=== PATIENT | male | born 1945 | race Caucasian/White ===

== ENCOUNTER 2018-10-22 17:14 | Inpatient (IN) ==
[2018-10-22] MEDS ORDERED: *HR* OxyCODONE Immed Rel 5 MG TABLET PO PRN (18:00)
[2018-10-22] MEDS ORDERED: Ondansetron ODT 4 MG TAB.RAPDIS SL PRN (18:02)
[2018-10-22] MEDS ORDERED: Acetaminophen 325 MG TABLET PO PRN (18:02)
[2018-10-22] MEDS: Aspirin Enteric Coated 325 MG Tablet PO SCH (20:40)
[2018-10-22] MEDS: Sennosides/Docusate Sodium TABLET PO SCH (20:41)
[2018-10-22] MEDS: Losartan/HCTZ 50-12.5 TABLET PO SCH (20:41)
[2018-10-22] MEDS: *HR* OxyCODONE Immed Rel 5 MG TABLET PO PRN (20:43)
[2018-10-22] MEDS ORDERED: Mag Hydrox/Al Hydrox/Simeth 30 ML UDC PO SCH (21:00)
[2018-10-23 05:42] LABS: Basophils % 0.2 %; Eosinophils # 0.1 K/mcL (0.0-0.6); Hematocrit 25.2 % (37.5-50.1); Hemoglobin 8.7 g/dL (12.9-16.9); Immature Granulocytes % 0.2 % (0-4); Lymphocytes # 1.3 K/mcL (0.6-4.6); Lymphocytes % 24.4 %; Mean Corpuscular HGB Conc 34.5 g/dL (31.6-35.5); Mean Corpuscular Hemoglobin 30.5 pg (28.0-33.3); Mean Corpuscular Volume 88.4 fL (83.0-100.0); Monocytes # 0.9 K/mcL (0.0-1.3); Monocytes % 16.7 %; Neutrophils # 3.1 K/mcL (1.6-8.9); Platelet Count 107 K/mcL (140-400); Red Blood Count 2.85 M/mcL (4.19-5.50); Red Cell Distribution Width 13.2 % (11.5-14.5); Segmented Neutrophils % 56.5 %
[2018-10-23] MEDS: Losartan/HCTZ 50-12.5 TABLET PO SCH ×2 (05:46→16:34)
[2018-10-23] MEDS: *HR* Enoxaparin 30 MG/0.3 ML SYRINGE SQ SCH ×2 (05:46→16:34)
[2018-10-23 05:47] LABS: INR 1.1; Prothrombin Time 12.5 Seconds (9.4-12.1)
[2018-10-23] MEDS: *HR* OxyCODONE Immed Rel 5 MG TABLET PO PRN ×2 (05:47→20:58)
[2018-10-23 05:49] LABS: Activated Partial Thrombo Time 31.3 Seconds (26.0-36.0)
[2018-10-23 05:58] LABS: BUN/Creatinine Ratio 27 (6-26); Blood Urea Nitrogen 27 mg/dL (8-23); Carbon Dioxide 29 mEq/L (23-29); Chloride 93 mEq/L (98-107); Glucose 123 mg/dL (70-105); Osmolality,Calculated 274 (280-300); Potassium 3.2 mEq/L (3.5-5.1); Sodium 129 mEq/L (136-145); eGFR For Non-African Americans > 60 (> 60)
[2018-10-23] MEDS: Sennosides/Docusate Sodium TABLET PO SCH ×2 (09:10→20:59)
[2018-10-23] MEDS: Aspirin Enteric Coated 325 MG Tablet PO SCH ×2 (09:10→20:59)
[2018-10-23] MEDS: Mag Hydrox/Al Hydrox/Simeth 30 ML UDC PO PRN (10:28)
--- NOTE | 2018-10-23 15:36 | Internal Med History&Physical ---
Date of Encounter: 10/23/18 Time of Encounter: 13:30 Assessment and Plan (1) Status post total knee replacement, left Current visit: Yes Status: Acute PT is deconditioned will need PT OT pain control (2) Chronic GERD Current visit: Yes Status: Acute pt has had acute on chronic gerd he was prescribed a PPI but has been afraid to take it Will change to Pepcid Denies melena or hematemesis (3) Poor appetite Current visit: Yes Status: Acute Patient has not been eating for 2 days he states he just does not feel hungry Denies abdominal pain or chest pain Says he has been mildly depressed since he lost the vision in his left eye 2 years ago after retinal detachment Denies suicidal ideation Will start low-dose 5 mg Lexapro and low-dose Remeron at at bedtime Internal Medicine - H&P: HPI Chief complaint: post left total knee replacement Admitted From: Intrahospital Transfer History of present illness: Mr. Mendez is a 73 year old male who recently had surgery for left total knee replacement He did well with the surgery but says he was constipated and not wanting to eat after the surgery has been feeling tired. He is deconditioned. He says usually he was active but 2 years ago he lost the vision in his left eye completely after retinal detachment. 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 Says because he likes to work on cars and motorcycles he has not been able to do things that he wants to do since he lost the vision in his eye. Discussed. He thinks this may also be affecting his appetite. Past Med Surg Social Fam HX - Past Medical History Medical history: GERD, hyperlipidemia, hypertension, RA Additional medical history: pt states he had brain scan after his eye surgery d/t complications and they seen an "old stroke" Psychiatric history: no psych history - Past Surgical History Surgical History: cataract Additional surgical history: hernia repair. left knee scope. right hip replacement - Social History Smoking Status: Never smoker Smokeless Tobacco Status: No Alcohol use: none Drug use: none Internal Medicine - H&P: Meds Losartan/Hydrochlorothiazide [Hyzaar 100-25 Tablet] 0.5 tab PO BID 07/15/17 [History] Simvastatin [Zocor] 20 mg PO HS 07/15/17 [History] Aspirin [Ecotrin] 325 mg PO BID 10/22/18 [History] Esomeprazole Magnesium [Nexium] 40 mg PO DAILY 10/22/18 [History] Losartan/HCTZ [Hyzaar 50-12.5 Tablet] 1 mg PO DAILY 10/22/18 [History] Oxycodone HCl [Roxybond] 5 mg PO Q4HR PRN 10/22/18 [History] Oxycodone HCl [Roxybond] 10 mg PO Q4H PRN 10/22/18 [History] Allergy/AdvReac Type Severity Reaction Status Date / Time No Known Allergies Allergy Verified 07/15/17 10:48 All Systems PM: A 10-system review of systems was performed and is negative for pertinent findings except as documented above in the HPI. - Constitutional Vitals: Temp Pulse Resp BP Pulse Ox 99.1 F 85 16 116/75 95 10/23/18 12:00 10/23/18 12:00 10/23/18 12:00 10/23/18 12:00 10/23/18 12:00 General appearance: Present: A&O X 0, cooperative, underweight Exam: General Thin WM fair eye contact skin no rash or lesion nails mildly dystrophic dressing intact heart regular no murmer lungs clear robert abd soft nt bs neck no mass no bruit Internal Med - H&P Results - Labs CBC & Chem 7: 10/23/18 05:15 10/23/18 05:15 Labs: Short CBC 10/23/18 Range/Units 05:15 WBC 5.5 (4.3-11.1) K/mcL Hgb 8.7 L (12.9-16.9) g/dL Hct 25.2 L (37.5-50.1) % Plt Count 107 L (140-400) K/mcL Neutrophils # 3.1 (1.6-8.9) K/mcL BMP 10/23/18 05:15 Sodium 129 L Potassium 3.2 L Chloride 93 L Carbon Dioxide 29 BUN 27 H Creatinine 1.01 Glucose 123 H Calcium 8.0 L
[2018-10-23] MEDS: Famotidine 20 MG TABLET PO SCH (16:34)
[2018-10-23] MEDS: Mirtazapine 15 MG TABLET PO SCH (20:58)
[2018-10-24 05:34] LABS: Hematocrit 24.6 % (37.5-50.1); Hemoglobin 8.4 g/dL (12.9-16.9); Mean Corpuscular HGB Conc 34.1 g/dL (31.6-35.5); Mean Corpuscular Volume 87.9 fL (83.0-100.0); Mean Platelet Volume 11.9 fL (9.4-12.4); Platelet Count 138 K/mcL (140-400); Red Cell Distribution Width 13.2 % (11.5-14.5)
[2018-10-24] MEDS: Losartan/HCTZ 50-12.5 TABLET PO SCH ×2 (05:42→17:40)
[2018-10-24] MEDS: Famotidine 20 MG TABLET PO SCH ×2 (05:46→17:39)
[2018-10-24] MEDS: *HR* Enoxaparin 30 MG/0.3 ML SYRINGE SQ SCH (05:47)
[2018-10-24 05:50] LABS: Alanine Aminotransferase 21 Units/L (7-52); Albumin/Globulin Ratio 1.2 (1.1-2.2); Alkaline Phosphatase 92 Units/L (34-104); Aspartate Amino Transferase 37 Units/L (13-39); BUN/Creatinine Ratio 28 (6-26); Bilirubin,Total 1.2 mg/dL (0.3-1.0); Blood Urea Nitrogen 31 mg/dL (8-23); Calcium 8.1 mg/dL (8.6-10.3); Carbon Dioxide 29 mEq/L (23-29); Chloride 93 mEq/L (98-107); Globulin 2.5 g/dL (2.4-3.5); Glucose 134 mg/dL (70-105); Osmolality,Calculated 279 (280-300); Potassium 3.1 mEq/L (3.5-5.1); Sodium 130 mEq/L (136-145); Total Protein 5.5 g/dL (6.4-8.9); eGFR For Non-African Americans > 60 (> 60)
[2018-10-24] MEDS: Sennosides/Docusate Sodium TABLET PO SCH ×2 (08:06→19:46)
[2018-10-24] MEDS: Aspirin Enteric Coated 325 MG Tablet PO SCH ×2 (08:12→19:46)
--- NOTE | 2018-10-24 13:37 | Internal Med Progress Note ---
Date of Encounter: 10/24/18 Time of Encounter: 14:50 - Assessment and plan (1) Status post total knee replacement, left Current Visit: Yes Status: Acute (2) Chronic GERD Current Visit: Yes Status: Acute (3) Poor appetite Current Visit: Yes Status: Acute - Subjective Interval history: Assessment and Plan (1) Status post total knee replacement, left Current visit: Yes Status: Acute PT is deconditioned will need PT OT pain control (2) Chronic GERD Current visit: Yes Status: Acute pt has had acute on chronic gerd he was prescribed a PPI but has been afraid to take it Will change to Pepcid Denies melena or hematemesis (3) Poor appetite Current visit: Yes Status: Acute Patient has not been eating several days he states he just does not feel hungry and is nauseated a lot. did vomit today he also vomited after surgery he says Denies abdominal pain or chest pain Says he has been mildly depressed since he lost the vision in his left eye 2 years ago after retinal detachment Denies suicidal ideation Will start low-dose 5 mg Lexapro and low-dose Remeron at at bedtime (4) hypokalemia K has been low but is lower today will give oral K and start LR IV (5) Anemia Pt has been anemic not acute Hb still over 8 but drifting down a bit will check iron and b12 will stop lovenox and continue with [po ASA bid INTERVAL HX s/p post left total knee replacement Admitted From: Intrahospital Transfer for rehab Mr. Mendez is a 73 year old male who recently had surgery for left total knee replacement He did well with the surgery but says he was constipated and not wanting to eat after the surgery has been feeling tired. He is now having loose stools He is deconditioned. He reports he has some ongoing more chronic nausea but did vomit earlier today he is not eating much he has had low potassium and low hb in past and now again no active bleeding no melana noted He says usually he was active but 2 years ago he lost the vision in his left eye completely after retinal detachment. 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 Says because he likes to work on cars and motorcycles he has not been able to do things that he wants to do since he lost the vision in his eye. - EXAMl General appearance: Present: A&O X 0, cooperative, underweight slight anxiety Thin WM fair eye contact nauseated skin no rash or lesion dressing intact heart regular no murmer lungs clear robert abd soft nt bs neck no mass no bruit - Constitutional Vitals: Temp Pulse Resp BP Pulse Ox 98.3 F 79 12 100/62 90 10/24/18 05:41 10/24/18 05:41 10/24/18 05:41 10/24/18 05:41 10/24/18 05:41 General appearance: Present: A&O X 0, cooperative, underweight Internal Medicine: Result - Labs CBC & Chem 7: 10/24/18 05:25 10/24/18 05:25 Labs: Short CBC 10/24/18 Range/Units 05:25 WBC 5.2 (4.3-11.1) K/mcL Hgb 8.4 L (12.9-16.9) g/dL Hct 24.6 L (37.5-50.1) % Plt Count 138 L (140-400) K/mcL BMP 10/24/18 05:25 Sodium 130 L Potassium 3.1 L Chloride 93 L Carbon Dioxide 29 BUN 31 H Creatinine 1.11 Glucose 134 H Calcium 8.1 L Liver Function 10/24/18 Range/Units 05:25 Total Bilirubin 1.2 H (0.3-1.0) mg/dL AST 37 (13-39) Units/L ALT 21 (7-52) Units/L Alkaline Phosphatase 92 (34-104) Units/L Albumin 3.0 L (3.5-5.7) g/dL - ABG Interpretation ABG results: PT/INR, D-dimer PT 12.5 Seconds (9.4-12.1) H 10/23/18 05:15 Consult Discharge Plan - Plan Referrals: Adonis Moreno DO [Primary Care Provider] -
[2018-10-24] MEDS: Ringers Solution, Lactated 1,000 ML IVC SCH ×2 (15:17→22:20)
[2018-10-24] MEDS: Mirtazapine 15 MG TABLET PO SCH (19:46)
[2018-10-24] MEDS: Mag Hydrox/Al Hydrox/Simeth 30 ML UDC PO PRN (20:30)
[2018-10-25] MEDS: Losartan/HCTZ 50-12.5 TABLET PO SCH ×2 (04:42→18:16)
[2018-10-25] MEDS: Famotidine 20 MG TABLET PO SCH ×2 (04:54→18:22)
[2018-10-25] MEDS: *HR* OxyCODONE Immed Rel 5 MG TABLET PO PRN (04:54)
[2018-10-25] MEDS: Ringers Solution, Lactated 1,000 ML IVC SCH (04:54)
[2018-10-25 05:45] LABS: Basophils % 0.4 %; Eosinophils # 0.2 K/mcL (0.0-0.6); Hematocrit 24.8 % (37.5-50.1); Hemoglobin 8.5 g/dL (12.9-16.9); Immature Granulocytes % 0.2 % (0-4); Lymphocytes # 1.3 K/mcL (0.6-4.6); Mean Corpuscular HGB Conc 34.3 g/dL (31.6-35.5); Mean Corpuscular Hemoglobin 30.5 pg (28.0-33.3); Mean Corpuscular Volume 88.9 fL (83.0-100.0); Monocytes # 0.7 K/mcL (0.0-1.3); Monocytes % 14.3 %; Neutrophils # 2.9 K/mcL (1.6-8.9); Platelet Count 166 K/mcL (140-400); Red Blood Count 2.79 M/mcL (4.19-5.50); Red Cell Distribution Width 13.2 % (11.5-14.5); Segmented Neutrophils % 57.1 %
[2018-10-25 06:00] LABS: BUN/Creatinine Ratio 21 (6-26); Blood Urea Nitrogen 19 mg/dL (8-23); Carbon Dioxide 30 mEq/L (23-29); Chloride 97 mEq/L (98-107); Glucose 156 mg/dL (70-105); Osmolality,Calculated 281 (280-300); Potassium 3.2 mEq/L (3.5-5.1); Sodium 133 mEq/L (136-145); eGFR For Non-African Americans > 60 (> 60)
[2018-10-25] MEDS: Aspirin Enteric Coated 325 MG Tablet PO SCH ×2 (09:04→20:36)
[2018-10-25] MEDS: Sennosides/Docusate Sodium TABLET PO SCH (09:05)
[2018-10-25] MEDS ORDERED: Sennosides/Docusate Sodium TABLET PO PRN (11:04)
--- NOTE | 2018-10-25 12:52 | Internal Med Progress Note ---
Date of Encounter: 10/25/18 Time of Encounter: 12:50 - Assessment and plan (1) Status post total knee replacement, left Current Visit: Yes Status: Acute Assessment and plan: Continue PT and OT. Will follow progress. Follow up with ortho as scheduled. Continue oxycodone as needed for pain. (2) Chronic GERD Current Visit: Yes Status: Acute Assessment and plan: Improving with zantac (3) Anemia Current Visit: Yes Status: Acute Assessment and plan: Hemoglobin 8.5, improving slightly. Denies any symptoms. Qualifiers: Anemia type: unspecified type Qualified Code(s): D64.9 - Anemia, unspecified - Time Spent With Patient less than 15 minutes - Subjective Interval history: Participating well with therapy. Transfers with min assist to bed. Standby assist with ambulating with Walker 130 feet. States pain is controlled with oxycodone. Having loose stool up until last night. Complains of often on nausea but getting better. No vomiting. Was started on Zantac. Denies fever, chills, shortness of breath or chest pain. - Constitutional Vitals: Temp Pulse Resp BP Pulse Ox 98.2 F 75 16 125/67 93 10/25/18 04:41 10/25/18 04:41 10/25/18 04:41 10/25/18 04:41 10/25/18 04:41 General appearance: Present: cooperative, A&O X 3, pleasant, no acute distress, underweight - Head Head exam: Present: atraumatic, normocephalic - Eye Eye exam: Present: PERRL, conjuntiva pink, sclera anicteric Pupils: Present: PERRL - Neck Neck exam general surgery: Present: supple, trachea midline. Absent: lymphadenopathy - Respiratory Respiratory exam: Present: CTAB. Absent: accessory muscle use, rales, rhonchi, wheezes - Cardiovascular Cardiovascular exam: Present: RRR, +S1, +S2. Absent: diastolic murmur, gallop, rubs, systolic murmur - GI/Abdominal GI/Abdominal exam: Present: normal bowel sounds, soft, no peritoneal signs. Absent: distended, tenderness - Extremities Exam Extremities exam: Present: warm, radial pulses palpable and symmetrical. Absent: calf tenderness, cyanotic, pedal edema - Incison Comments: Left knee incision dressing dry and intact with surrounding edema. Abel hose on. - Neurological Exam Neurological exam: Present: CN II-XII intact, oriented X3, no focal deficits. Absent: pronater drift, facial droop, speech deficit - Skin Skin exam: Present: dry, intact Internal Medicine: Result - Labs CBC & Chem 7: 10/25/18 05:30 10/25/18 05:30 Labs: Short CBC 10/25/18 Range/Units 05:30 WBC 5.1 (4.3-11.1) K/mcL Hgb 8.5 L (12.9-16.9) g/dL Hct 24.8 L (37.5-50.1) % Plt Count 166 (140-400) K/mcL Neutrophils # 2.9 (1.6-8.9) K/mcL BMP 10/25/18 05:30 Sodium 133 L Potassium 3.2 L Chloride 97 L Carbon Dioxide 30 H BUN 19 Creatinine 0.89 Glucose 156 H Calcium 8.0 L - ABG Interpretation ABG results: PT/INR, D-dimer PT 12.5 Seconds (9.4-12.1) H 10/23/18 05:15 Consult Discharge Plan - Plan Referrals: Adonis Moreno, [Primary Care Provider] -
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
[2018-10-25 13:32] LABS: % Iron Saturation 10 % (20-55); Iron 22 mcg/dL (65-175); Transferrin 164 mg/dL (203-362)
[2018-10-25] MEDS: traMADol 50 MG TABLET PO PRN (14:30)
[2018-10-25] MEDS: Mirtazapine 15 MG TABLET PO SCH (20:36)
[2018-10-26] MEDS: traMADol 50 MG TABLET PO PRN ×3 (01:16→21:46)
[2018-10-26] MEDS: Famotidine 20 MG TABLET PO SCH ×2 (06:21→18:08)
[2018-10-26] MEDS: Losartan/HCTZ 50-12.5 TABLET PO SCH (06:21)
[2018-10-26] MEDS: Aspirin Enteric Coated 325 MG Tablet PO SCH ×2 (08:00→21:46)
--- NOTE | 2018-10-26 11:03 | Internal Med Progress Note ---
Addendum entered and electronically signed by Giovanni Benjamin MD 10/26/18 12:35: I have personally performed a face to face evaluation on this patient. I have r eviewed and agree with the care plan. History and Exam by me shows: Patient with pain pretty well under control. Nausea is improved with change in medicine. He has popping and clicking with certain activities and notes that he is able to bend his leg, much. Physical therapies concerned about popping when he has range of motion. Discussed care with other providers and/or nursing. Patient has no complaint of chest discomfort, dyspnea, orthopnea, palpitations, nausea or vomiting, constipation or diarrhea, other changes in bowel habits, difficulty with urination, rash or itching, or other new complaints, except as mentioned above. Review of systems is otherwise negative. Examination: (Except as mentioned above): General: In no apparent distress. Alert and oriented 3. Nondiaphoretic. Head: Atraumatic and normocephalic. Respiratory: No use of accessory muscles. Lungs are clear throughout. Normal airflow. Cardiovascular: Regular rate and rhythm without murmur appreciated. Abdomen: Bowel sounds are normal. No hepatosplenomegaly mass or tenderness appreciated. Obese and therefore difficult to palpate deeply. Extremities: No cyanosis clubbing but he has swelling around his left knee incision and at the joint. He has maximum flexion of about 75 degrees, at the left knee. Skin: Warm and non-diaphoretic with no new lesions noted. We will empirically begin heparin because of his swelling and decreased range of motion in his left leg, even though he is ambulating well. We will encourage use of CPM as well as elevation when at rest. Original Note: Date of Encounter: 10/26/18 Time of Encounter: 11:01 - Assessment and plan (1) Status post total knee replacement, left Current Visit: Yes Status: Acute Assessment and plan: Continue PT and OT. Will follow progress. Follow up with ortho as scheduled. Continue tramadol as needed for pain. (2) Chronic GERD Current Visit: Yes Status: Acute Assessment and plan: Improving with zantac (3) Anemia Current Visit: Yes Status: Acute Assessment and plan: Hemoglobin 8.5, improving slightly. Denies any symptoms. Qualifiers: Anemia type: unspecified type Qualified Code(s): D64.9 - Anemia, unspecified - Time Spent With Patient less than 15 minutes - Subjective Interval history: Participating well with therapy. states he heard and felt a "popping soundand feeling" with flexion while on the new step. was felt on left lateral knee. denies pain. CPM ordered. still has mod amt of swelling to LLE. Transfers with min assist to bed. Standby assist with ambulating with Walker 130 feet. States pain is controlled with tramadol. Denies fever, chills, shortness of breath or chest pain. - Constitutional Vitals: Temp Pulse Resp BP Pulse Ox 98.8 F 81 16 109/64 96 10/26/18 06:34 10/26/18 06:34 10/26/18 06:34 10/26/18 06:34 10/26/18 06:34 General appearance: Present: cooperative, A&O X 3, pleasant, no acute distress, underweight - Head Head exam: Present: atraumatic, normocephalic - Eye Eye exam: Present: PERRL, conjuntiva pink, sclera anicteric Pupils: Present: PERRL - Neck Neck exam general surgery: Present: supple, trachea midline. Absent: ly mphadenopathy - Respiratory Respiratory exam: Present: CTAB. Absent: accessory muscle use, rales, rhonchi, wheezes - Cardiovascular Cardiovascular exam: Present: RRR, +S1, +S2. Absent: diastolic murmur, gallop, rubs, systolic murmur - GI/Abdominal GI/Abdominal exam: Present: normal bowel sounds, soft, no peritoneal signs. Absent: distended, tenderness - Extremities Exam Extremities exam: Present: warm, radial pulses palpable and symmetrical. Absent: calf tenderness, cyanotic, pedal edema Additional comments: mod amt of edema to LLE, left knee incision dressing dry and intact. Abel hose in place bilateral lower extremities. Able to flex left knee to 80. No popping or abnormalities felt on exam. - Neurological Exam Neurological exam: Present: CN II-XII intact, oriented X3, no focal deficits. Absent: pronater drift, facial droop, speech deficit - Skin Skin exam: Present: dry, intact Internal Medicine: Result - Labs CBC & Chem 7: 10/25/18 05:30 10/25/18 05:30 - ABG Interpretation ABG results: PT/INR, D-dimer PT 12.5 Seconds (9.4-12.1) H 10/23/18 05:15 Consult Discharge Plan - Plan Referrals: Adonis Moreno DO [Primary Care Provider] - [place] MD [Non-Partnered Physician] - 11/04/18 2:30 pm
[2018-10-26] MEDS: *HR* Heparin 5,000 UNIT/ML VIAL SQ SCH (18:13)
[2018-10-26] MEDS: Mirtazapine 15 MG TABLET PO SCH (21:46)
[2018-10-27] MEDS: *HR* Heparin 5,000 UNIT/ML VIAL SQ SCH ×2 (06:05→17:20)
[2018-10-27] MEDS: Famotidine 20 MG TABLET PO SCH ×2 (06:06→15:35)
[2018-10-27] MEDS: traMADol 50 MG TABLET PO PRN ×2 (06:06→15:34)
[2018-10-27] MEDS: Aspirin Enteric Coated 325 MG Tablet PO SCH ×2 (07:54→21:22)
--- NOTE | 2018-10-27 13:03 | Internal Med Progress Note ---
Addendum entered and electronically signed by Giovanni Benjamin MD 10/27/18 13:09: I have personally performed a face to face evaluation on this patient. I have r eviewed and agree with the care plan. History and Exam by me shows: Patient is feeling well with exception of popping in his knee, continued. This is better than yesterday and swelling has diminished, as well. CPM has helped. Discussed care with other providers and/or nursing. Patient has no complaint of chest discomfort, dyspnea, orthopnea, palpitations, nausea or vomiting, constipation or diarrhea, other changes in bowel habits, difficulty with urination, rash or itching, or other new complaints, except as mentioned above. Review of systems is otherwise negative. Examination: (Except as mentioned above): General: In no apparent distress. Alert and oriented 3. Nondiaphoretic. Head: Atraumatic and normocephalic. Respiratory: No use of accessory muscles. Lungs are clear throughout. Normal airflow. Cardiovascular: Regular rate and rhythm without murmur appreciated. Abdomen: Bowel sounds are normal. No hepatosplenomegaly mass or tenderness appreciated. Extremities: No cyanosis clubbing or change in edema. He still has some edema but no crepitus is appreciated. There is no joint instability. Skin: Warm and non-diaphoretic with no new lesions noted. I told him that he will be seeing Dr. Elizondo in a couple of days and he should follow with him regarding the popping sensation. Anticipated discharge is tomorrow. Original Note: Date of Encounter: 10/27/18 Time of Encounter: 13:01 - Assessment and plan (1) Status post total knee replacement, left Current Visit: Yes Status: Acute Assessment and plan: Continue PT and OT. Will follow progress. Follow up with Dr. Yancey on . Continue tramadol as needed for pain. (2) Chronic GERD Current Visit: Yes Status: Acute Assessment and plan: Improving with zantac (3) Anemia Current Visit: Yes Status: Acute Assessment and plan: Hemoglobin 8.5, improving slightly. Denies any symptoms. Qualifiers: Anemia type: unspecified type Qualified Code(s): D64.9 - Anemia, unspecified - Time Spent With Patient less than 15 minutes - Subjective Interval history: Participating well with therapy. continues to describe he feels a "popping sound and feeling" with flexion off and on. denies pain. still has mod amt of swelling to LLE, but slight improvement since yesterday. Transfers with min assist to bed. Standby assist with ambulating with Walker 130 feet. States pain is controlled with tramadol. Denies fever, chills, shortness of breath or chest pain. - Constitutional Vitals: Temp Pulse Resp BP Pulse Ox 98.2 F 76 16 120/72 95 10/27/18 07:30 10/27/18 07:30 10/27/18 07:30 10/27/18 07:30 10/27/18 07:30 General appearance: Present: cooperative, A&O X 3, pleasant, no acute distress, underweight - Head Head exam: Present: atraumatic, normocephalic - Eye Eye exam: Present: PERRL, conjuntiva pink, sclera anicteric Pupils: Present: PERRL - Neck Neck exam general surgery: Present: supple, trachea midline. Absent: lymphadenopathy - Respiratory Respiratory exam: Present: CTAB. Absent: accessory muscle use, rales, rhonchi, wheezes - Cardiovascular Cardiovascular exam: Present: RRR, +S1, +S2. Absent: diastolic murmur, gallop, rubs, systolic murmur - GI/Abdominal GI/Abdominal exam: Present: normal bowel sounds, soft, no peritoneal signs. Absent: distended, tenderness - Extremities Exam Extremities exam: Present: pedal edema, warm, radial pulses palpable and symmetrical. Absent: calf tenderness, cyanotic Additional comments: nonpitting edema to LLE - Incison Comments: Left knee incision dressing dry and intact. Moderate amount of surrounding edema. - Neurological Exam Neurological exam: Present: CN II-XII intact, oriented X3, no focal deficits. Absent: pronater drift, facial droop, speech deficit - Skin Skin exam: Present: dry, intact Internal Medicine: Result - Labs CBC & Chem 7: 10/25/18 05:30 10/25/18 05:30 - ABG Interpretation ABG results: PT/INR, D-dimer PT 12.5 Seconds (9.4-12.1) H 10/23/18 05:15 Consult Discharge Plan - Plan Referrals: Adonis Moreno DO [Primary Care Provider] - [place] MD [Non-Partnered Physician] - 11/04/18 2:30 pm
[2018-10-27 14:25] LABS: BUN/Creatinine Ratio 20 (6-26); Blood Urea Nitrogen 18 mg/dL (8-23); Calcium 8.2 mg/dL (8.6-10.3); Carbon Dioxide 34 mEq/L (23-29); Chloride 96 mEq/L (98-107); Glucose 121 mg/dL (70-105); Osmolality,Calculated 281 (280-300); Potassium 3.8 mEq/L (3.5-5.1); Sodium 134 mEq/L (136-145); eGFR For Non-African Americans > 60 (> 60)
[2018-10-27] MEDS: Mirtazapine 15 MG TABLET PO SCH (21:23)
[2018-10-28] MEDS: traMADol 50 MG TABLET PO PRN (04:39)
[2018-10-28] MEDS: *HR* Heparin 5,000 UNIT/ML VIAL SQ SCH (05:37)
[2018-10-28] MEDS: Famotidine 20 MG TABLET PO SCH (05:38)
[2018-10-28 05:45] LABS: Basophils % 0.4 %; Eosinophils # 0.4 K/mcL (0.0-0.6); Eosinophils % 5.5 %; Hematocrit 24.1 % (37.5-50.1); Immature Granulocytes % 0.7 % (0-4); Lymphocytes # 1.4 K/mcL (0.6-4.6); Lymphocytes % 20.6 %; Mean Corpuscular HGB Conc 33.2 g/dL (31.6-35.5); Mean Corpuscular Hemoglobin 30.3 pg (28.0-33.3); Mean Corpuscular Volume 91.3 fL (83.0-100.0); Mean Platelet Volume 10.5 fL (9.4-12.4); Monocytes # 0.9 K/mcL (0.0-1.3); Monocytes % 13.4 %; Neutrophils # 4.1 K/mcL (1.6-8.9); Platelet Count 265 K/mcL (140-400); Red Blood Count 2.64 M/mcL (4.19-5.50); Red Cell Distribution Width 13.6 % (11.5-14.5); Segmented Neutrophils % 59.4 %
[2018-10-28 07:01] VITALS: BP 135/65
[2018-10-28] MEDS: Aspirin Enteric Coated 325 MG Tablet PO SCH (08:10)
--- NOTE | 2018-10-28 11:31 | Discharge Summary ---
Addendum entered and electronically signed by Giovanni Benjamin MD 10/28/18 12:52: I have personally performed a face to face evaluation on this patient. I have r eviewed and agree with the care plan. History and Exam by me shows: Patient had a significant elevation pain level, last night, but this improved this morning. He is pleased to be discharged and will have a follow-up appointment tomorrow, with his surgeon. We discussed genu valgus which he perceives of his left knee. I told him that this is actually quite a lot more significant on his right tennis left. Discussed care with other providers and/or nursing. Patient has no complaint of chest discomfort, dyspnea, orthopnea, palpitations, nausea or vomiting, constipation or diarrhea, other changes in bowel habits, difficulty with urination, rash or itching, or other new complaints, except as mentioned above. Review of systems is otherwise negative. Examination: (Except as mentioned above): General: In no apparent distress. Alert and oriented 3. Nondiaphoretic. Head: Atraumatic and normocephalic. Respiratory: No use of accessory muscles. Lungs are clear throughout. Normal airflow. Cardiovascular: Regular rate and rhythm without murmur appreciated. Abdomen: Bowel sounds are normal. No hepatosplenomegaly mass or tenderness appreciated. Patient is examined upright at bedside and this also limits exam. Extremities: No cyanosis clubbing or edema. Skin: Warm and non-diaphoretic with no new lesions noted. He has been told to follow with his surgeon tomorrow regarding his "popping sensation" as well as his genu valgus concern. Original Note: Orders not resulted at time of discharge: Pending orders 11/01/18 04:00 Basic Metabolic Panel MO Complete Blood Count [HEME] MO 11/08/18 04:00 Basic Metabolic Panel MO Complete Blood Count [HEME] MO Date of Encounter: 10/28/18 Time of Encounter: 11:28 - Discharge Diagnosis (1) Status post total knee replacement, left Priority: Primary Status: Acute Comments: Patient had a left total knee replacement at [facility] on 10/20/18. Patient did have issues with anemia postoperatively, have not to receive 2 units of packed RBCs. Otherwise his recovery at the [facility] was uneventful. Patient was admitted to this facility for further rehabilitation due to generalized weakness secondary to his surgery. Patient has dissipated and physical therapy and progressed well. Left knee remains slightly swollen with small amount of ecchymosis noted. Patient states that he does feel a pop in the knee during his range of motion. Patient's orthopedic surgeon was notified moved up his follow-up to tomorrow, in which the patient will go to have his left knee evaluated. Patient states that this pain has been well tolerated with current medications. Patient is continue follow-up with his PCP. (2) Chronic GERD Priority: Secondary Status: Acute (3) Anemia Priority: Secondary Status: Acute Comments: Patient has had postsurgical blood loss anemia, requiring transfusion of 2 units of packed RBCs while at [facility]. Patient's hemoglobin has remained stable with his last hemoglobin at 8.0. Patient is to continue follow-up with his primary care physician for further evaluation. Qualifiers: Anemia type: unspecified type Qualified Code(s): D64.9 - Anemia, unspecified (4) HTN (hypertension) Priority: Secondary Status: Chronic Comments: As with a history of hypertension and was on Hyzaar as a home medication, but was not continued while at [facility]. The medication was not continued after his transfer this facility and his blood pressure has remained stable with systolic blood pressure less than 150. Patient was given recommendations to remain off this medication until seen by his family physician for further evaluation and follow-up. Qualifiers: Hypertension type: essential hypertension Qualified Code(s): I10 - Essential (primary) hypertension Hospital course: Mr. Mendez is a 73 year old male, who was admitted to this facility for further rehabilitation due to weakness secondary to his left total knee replacement. Patient had a left total knee replacement performed [facility] on 10/20/18. Patient did have blood loss anemia postoperatively and required transfusion of 2 units of packed RBCs. No other issues were passed on. Patient has participated in physical therapy while at this facility and has progressed well. Vital signs remained stable. Left knee surgical incision remains healthy and intact with moderate amount of edema and ecchymosis noted. Patient has had complaints of a popping feeling to his left knee on range of motion. Patient's orthopedic surgeon was alerted of this issue and provided a follow-up for tomorrow to evaluate the knee. Patient's pain has been well controlled I will at this facility and patient was given a prescription for tramadol at time of discharge. Patient's blood pressure also has been stable and patient's Hyzaar was not continued during his hospitalization. Patient was given recommendations to remain MEDICATION until seen by his family physician for further evaluation and follow-up. Patient will continue his physical therapy through home health services. Discharge discussed with: patient Time spent discussing smoking cessation with patient: 3 to 10 minutes - Time Spent with Patient Total time spent providing and/or coordinating discharge services: Time spent: Less than 30 minutes - Discharge Medications Prescriptions: No Action Simvastatin [Zocor] 20 mg PO HS Losartan/Hydrochlorothiazide [Hyzaar 100-25 Tablet] 0.5 tab PO BID Esomeprazole Magnesium [Nexium] 40 mg PO DAILY Aspirin [Ecotrin] 325 mg PO BID Oxycodone HCl [Roxybond] 5 mg PO Q4HR PRN PRN Reason: Moderate Pain Oxycodone HCl [Roxybond] 10 mg PO Q4H PRN PRN Reason: Severe Pain Losartan/HCTZ [Hyzaar 50-12.5 Tablet] 1 mg PO DAILY Home Medications: Losartan/Hydrochlorothiazide [Hyzaar 100-25 Tablet] 0.5 tab PO BID 07/15/17 [History] Simvastatin [Zocor] 20 mg PO HS 07/15/17 [History] Aspirin [Ecotrin] 325 mg PO BID 10/22/18 [History] Esomeprazole Magnesium [Nexium] 40 mg PO DAILY 10/22/18 [History] Losartan/HCTZ [Hyzaar 50-12.5 Tablet] 1 mg PO DAILY 10/22/18 [History] Oxycodone HCl [Roxybond] 5 mg PO Q4HR PRN 10/22/18 [History] Oxycodone HCl [Roxybond] 10 mg PO Q4H PRN 10/22/18 [History] Allergies/Adverse Reactions: Allergy/AdvReac Type Severity Reaction Status Date / Time No Known Allergies Allergy Verified 07/15/17 10:48 Date of admission: 10/22/18 17:14 Primary care physician: Adonis Moreno, Consults: 10/22/18 17:56 Consult to Occupational Therapy [CONS] Routine Comment: treat and eval Reason for Consult: left total knee Does patient have active BEDREST order?: No Is patient medically & hemodynamically stable?: Yes Patient assessed for mobility or mobilized this visit?: No Consult to Physical Therapy [CONS] Routine Comment: treat and eval Reason for Consult: left total knee Does patient have active BEDREST order?: No Is patient medically & hemodynamically stable?: Yes Patient assessed for mobility or mobilized this visit?: No Consult to Recreational Therapy [CONS] Routine Comment: Consult to Derivatives Trader [CONS] Routine Reason for SW Consult: d/c planning 10/25/18 12:48 Consult to Physical Medicine/Rehab [CONS] Routine Reason for Consult: Dr Srivastava for LTKR Call Completed: Yes Discharging clinician: Giovanni Benjamin - Constitutional Vitals: Temp Pulse Resp BP Pulse Ox 97.9 F 77 18 135/65 95 10/28/18 06:57 10/28/18 06:57 10/28/18 06:57 10/28/18 06:57 10/28/18 06:57 General appearance: Present: cooperative, A&O X 3, pleasant, no acute distress, underweight - Head Head exam: Present: atraumatic, normocephalic - Eye Eye exam: Present: PERRL, conjuntiva pink, sclera anicteric Pupils: Present: PERRL - Neck Neck exam general surgery: Present: supple, trachea midline. Absent: lymphadenopathy - Respiratory Respiratory exam: Present: CTAB. Absent: accessory muscle use, rales, rhonchi, wheezes - Cardiovascular Cardiovascular exam: Present: RRR, +S1, +S2. Absent: diastolic murmur, gallop, rubs, systolic murmur - GI/Abdominal GI/Abdominal exam: Present: normal bowel sounds, soft, no peritoneal signs. Absent: distended, tenderness - Extremities Exam Extremities exam: Present: warm, radial pulses palpable and symmetrical. Absent: calf tenderness, cyanotic, pedal edema Additional comments: Left knee with midline incision that appears healthy and intact. Moderate amount of edema and ecchymosis noted. Patient states popping feeling during range of motion. - Neurological Exam Neurological exam: Present: CN II-XII intact, oriented X3, no focal deficits. Absent: pronater drift, facial droop, speech deficit - Skin Skin exam: Present: dry, intact - Patient Status Disposition: Home Health Service Condition: Fair Functional capacity at discharge: uses cane/walker Overall status at discharge: patient is progressing back to baseline - Discharge Instructions Instructions: Aspirin (By mouth), Oxycodone, Rapid Release (By mouth), Total Knee Replacement (DC) Follow Up With: Adonis Moreno DO [Primary Care Provider] - 11/08/18 1:00 pm [place] MD [Non-Partnered Physician] - 10/29/18 3:00 pm (next appoint 11/04/18 230pm) - Diet and Activity Activity: ambulate only with your walker, as per physical therapy Diet: advance to your usual diet, low fat, low cholesterol, low salt diet
--- NOTE | 2018-10-28 11:50 | Physician Discharge Referral ---
Addendum entered and electronically signed by Giovanni Benjamin MD 10/28/18 12:52: Original Note: Home Health/Hosp Referral Info Transfer to: Home Health Provider in Charge Post Discharge: PCP - Diagnosis (1) Status post total knee replacement, left Priority: Primary Status: Acute (2) Chronic GERD Priority: Secondary Status: Chronic (3) Anemia Priority: Secondary Status: Acute (4) HTN (hypertension) Priority: Secondary Status: Chronic - Respiratory Orders Smoking Cessation: Smoking cessation has been advised. For more information, call the [place] Tobacco Quit Line at 3-622-XAEN-NOW. - Diet/Nutrition Diet/Nutrition Orders: No Added Salt (INDY), Cardiac - Activity Activity Orders: Up ad em, Walker - Services Needed Following services are medically necessary services: Nursing, Home Health Aide, Physical Therapy - Transfer Medications Prescriptions: Mirtazapine [Remeron] 15 mg PO HS #30 tablet Home Medications: Losartan/Hydrochlorothiazide [Hyzaar 100-25 Tablet] 0.5 tab PO BID 07/15/17 [History] Simvastatin [Zocor] 20 mg PO HS 07/15/17 [History] Aspirin [Ecotrin] 325 mg PO BID 10/22/18 [History] Esomeprazole Magnesium [Nexium] 40 mg PO DAILY 10/22/18 [History] Losartan/HCTZ [Hyzaar 50-12.5 Tablet] 1 mg PO DAILY 10/22/18 [History] Oxycodone HCl [Roxybond] 5 mg PO Q4HR PRN 10/22/18 [History] Oxycodone HCl [Roxybond] 10 mg PO Q4H PRN 10/22/18 [History] Mirtazapine [Remeron] 15 mg PO HS #30 tablet 10/28/18 [Rx] Allergies/Adverse Reactions: Allergy/AdvReac Type Severity Reaction Status Date / Time No Known Allergies Allergy Verified 07/15/17 10:48 Certification: Further, I certify that my clinical findings support that this patient is homebound (i.e. absences from home require considerable and taxing effort and are for medical reasons or episcopal services or infrequently or short duration when for other reasons) because: Homebound Reason: Leaving home requires considerable and taxing effort due to condition Attestation: My signature below is to certify that this patient is under my care and that I, or nurse practitioner, or a physician's cataloging assistant working with me, has a [id number] encounter with this patient.
== END 2018-10-28 14:04 | disposition home health service (06) | DRG 560 ==
LOC: INPGRE 17:14